=== PATIENT | female | born 1940 | race Caucasian/White ===

== ENCOUNTER → 2017-03-16 | Outpatient (CLI) | payer OTHER | LOC: FIMAGING 13:17 | PROVIDERS: ATTEND Family Medicine | DX: Z13.820 Encounter for screening for osteoporosis (principal); M85.80 Other specified disorders of bone density and structure, unspecified site; Z78.0 Asymptomatic menopausal state; Z96.643 Presence of artificial hip joint, bilateral ==

== ENCOUNTER → 2017-06-19 | Outpatient (CLI) | payer OTHER | LOC: FIMAGING 18:24 | PROVIDERS: ATTEND Physical Medicine & Rehabilitation | DX: M25.551 Pain in right hip (principal); Z96.643 Presence of artificial hip joint, bilateral ==

== ENCOUNTER 2018-08-18 15:51 | Emergency (ER) | payer OTHER ==
[2018-08-18] MEDS ORDERED: NS 500 ML IV ONE (15:55)
[2018-08-18 16:18] LABS: PLATELET COUNT 281 10^3/uL (150-400)
--- NOTE | 2018-08-18 17:28 | EDPHY ---
H & P Time Seen by Provider: 08/18/18 15:55 HPI/ROS: HPI Fainting. 77-year-old female by private vehicle with her daughter. This patient was riding in the passenger seat of her daughter's car with her daughter. She told her daughter that she was having some discomfort in her diaphragm and was feeling nauseous. She then became diaphoretic. The daughter. The car and while helping the patient get out of the passenger seat the patient briefly lost consciousness and slid down to the floor of the vehicle. Her daughter estimates she was unconscious for less than a minute. Other than the diaphragm discomfort which she describes as a tightness substernal anterior across her upper abdomen, she denied any chest pain. No palpitations. No headache. No shortness of breath. Denies any loss of sensation or weakness in her extremities. He is feeling better now. ROS: Constitutional: No fever, no chills. No weakness. Eyes: No discharge. No changes in vision. ENT: No sore throat. No nasal congestion or rhinorrhea. Respiratory: No cough. No shortness of breath. Cardiac: No chest pain, no palpitations. Gastrointestinal: No abdominal pain, no vomiting, no diarrhea. Genitourinary: No hematuria. No dysuria or increased frequency with urination. Musculoskeletal: No back pain. No neck pain. No myalgias or arthralgias. Skin: No rashes. Neurological: No headache. No focal weakness or altered sensation. Past medical history: Right total hip replacement, cervical fusion, chronic pain, lumbar laminectomy. Social history: Nonsmoker. Here with her daughter. No alcohol. Physical Exam: General Appearance: Alert, no distress. This patient is responding to questions appropriately and in full sentences. This patient appears well- hydrated and well-nourished. Head: Normocephalic atraumatic. Eyes: Pupils equal and round no pallor or injection. No lid edema, erythema or injection. ENT, Mouth: Mucous membranes are moist. The pharyngeal tissues are unremarkable. No edema or swelling. No asymmetry suggestive of abscess. No erythema or exudates. No tongue lacerations or abrasions. Respiratory: There are no retractions, lungs are clear to auscultation with good air movement bilaterally. Cardiovascular: Regular rate and rhythm. Faint systolic murmur. Gastrointestinal: Abdomen is soft and nontender, no masses, bowel sounds normal. No focal tenderness at McBurney's point. No Lowe sign. Neurological: Motor sensory function is grossly intact. Cranial nerves are normal. Cerebellar function is normal. Skin: Warm and dry, no rashes. Musculoskeletal: Neck is supple and nontender. Extremities are symmetrical. All joints range without pain or impingement. Psychiatric: No agitation. No depression. Database: EKG: EKG time is 4:00 p.m.; EKG shows a narrow complex normal sinus rhythm with a ventricular rate of 59. The UT, QRS, QT intervals are within normal limits. T- wave inversions noted in V1 through V3. No evidence of right heart strain. No evidence of WPW, Brugada syndrome, hypertrophic cardiomyopathy. Interpreted by me. Imaging: Procedures: Emergency department course: Triage vital signs reviewed and are within normal limits. Her blood pressures have most recently been in the 90s over 50s. IV was placed. She was placed on a optical goods drill operator. She was started on IV normal saline with 500 cc to be given over the next hour. EKG obtained and reviewed by myself. 5:25 p.m., the patient was re-evaluated, blood pressure currently 96/58. ear mold laboratory technician shows a narrow complex sinus rhythm with ventricular rate of 75. Results of her diagnostic workup discussed with her and her daughter. The patient currently has no complaints. I discussed admission. I explained my concerns regarding her EKG as well as the tightness she felt in her lower chest and anterior upper abdomen. She tells me that at this time she does not want to be admitted. In my professional opinion, she understands the risks of declining admission. She did agree to allow was to road test her in the emergency department and I will follow up with her regarding her disposition. 5:45 p.m., the patient was re-evaluated, she was up and ambulatory around the emergency department without issue. I again discussed admission with her. Ida, case management was in the room with me. I discussed my concerns and reasoning for admitting her for observation overnight. In my professional opinion she understands this reasoning. She declines admission. The patient competently engages in shared decision making. They demonstrate capacitance to make decisions. I discussed follow-up with Cardiology with her and her daughter. Return to emergency department precautions were thoroughly reviewed. All of their questions were answered. The patient was discharged in good condition with her daughter. Differential Diagnosis: The differential diagnosis on this patient includes but is not limited to vasovagal syncope, dehydration, arrhythmia, acute coronary syndrome. This represents a partial list of diagnoses considered. These considerations are based on history, physical exam, past history, reassessment and diagnostic testing. Smoking Status: Former smoker Constitutional: Initial Vital Signs Temperature (C) 36.5 C 08/18/18 16:00 Heart Rate 60 08/18/18 16:00 Respiratory Rate 16 08/18/18 16:00 Blood Pressure 105/63 08/18/18 16:00 O2 Sat (%) 97 08/18/18 16:00 O2 Delivery Mode Room Air Allergies/Adverse Reactions: codeine [Codeine] Allergy (Intermediate, Verified 07/15/12 12:08) Vomiting oxycodone HCl [From Percocet] Allergy (Intermediate, Verified 07/15/12 12:08) Vomiting prochlorperazine edisylate [From Compazine] Allergy (Intermediate, Verified 01/18 12:08) Other-Enter Comments prochlorperazine maleate [From Compazine] Allergy (Intermediate, Verified 12:08) Other-Enter Comments fentanyl Allergy (Verified 08/18/18 16:04) Home Medications: Medication Instructions Recorded Gabapentin 08/18/18 Hydrocodone-Acetamin 5-325 mg 08/18/18 Lorazepam 08/18/18 Medical Decision Making - Data Points Laboratory Results: Laboratory Results 08/18/18 16:11 08/18/18 16:11 08/18/18 08/18/18 08/18/18 16:11 16:11 16:06 WBC 6.01 10^3/uL 10^3/uL (3.80-9.50) RBC 4.58 10^6/uL 10^6/uL (4.18-5.33) Hgb 13.7 g/dL g/dL (12.6-16.3) Hct 42.6 % % (38.0-47.0) MCV 93.0 fL fL (81.5-99.8) MCH 29.9 pg pg (27.9-34.1) MCHC 32.2 g/dL L g/dL (32.4-36.7) RDW 12.3 % % (11.5-15.2) Plt Count 281 10^3/uL 10^3/uL (150-400) MPV 9.5 fL fL (8.7-11.7) Neut % (Auto) 51.1 % % (39.3-74.2) Lymph % (Auto) 39.3 % % (15.0-45.0) Lane % (Auto) 8.2 % % (4.5-13.0) Eos % (Auto) 0.7 % % (0.6-7.6) Baso % (Auto) 0.5 % % (0.3-1.7) Nucleat RBC Rel Count 0.0 % % (0.0-0.2) Absolute Neuts (auto) 3.08 10^3/uL 10^3/uL (1.70-6.50) Absolute Lymphs (auto) 2.36 10^3/uL 10^3/uL (1.00-3.00) Absolute Monos (auto) 0.49 10^3/uL 10^3/uL (0.30-0.80) Absolute Eos (auto) 0.04 10^3/uL 10^3/uL (0.03-0.40) Absolute Basos (auto) 0.03 10^3/uL 10^3/uL (0.02-0.10) Absolute Nucleated RBC 0.00 10^3/uL 10^3/uL (0-0.01) Immature Gran % 0.2 % % (0.0-1.1) Immature Gran # 0.01 10^3/uL 10^3/uL (0.00-0.10) Sodium 136 mEq/L mEq/L (135-145) Potassium 4.3 mEq/L mEq/L (3.5-5.2) Chloride 102 mEq/L mEq/L (97-110) Carbon Dioxide 30 mEq/l mEq/l (22-31) Anion Gap 4 mEq/L L mEq/L (6-14) BUN 16 mg/dL mg/dL (7-23) Creatinine 0.8 mg/dL mg/dL (0.6-1.0) Estimated GFR > 60 Glucose 79 mg/dL mg/dL (70-100) Calcium 9.1 mg/dL mg/dL (8.5-10.4) POC Troponin I 0.00 ng/mL ng/mL (0.00-0.08) Medications Given: Discontinued Medications Sodium Chloride (Ns) 500 mls @ 1,000 mls/hr IV EDNOW ONE PRN Reason: Protocol Stop: 08/18/18 16:24 Last Admin: 08/18/18 16:06 Dose: 500 mls Point of Care Test Results: Chemistry 08/18/18 16:06 POC Troponin I 0.00 ng/mL ng/mL (0.00-0.08) Departure - Departure Disposition: Home, Routine, Self-Care Clinical Impression: Syncope Condition: Good Instructions: Syncope (ED) Additional Instructions: Read and follow provided instructions. Follow-up with Cardiology, early this week, as discussed. I have sent notification to them and they should be calling your home on Sunday. Explain this is an emergency department follow-up for an abnormal EKG and your fainting episode. Return to the emergency department for chest pain or upper abdominal pain, heart palpitations, lightheadedness or fainting or other serious concerns. Referrals: [facility] [Provider Group] - As per Instructions
[2018-08-18 18:00] VITALS: BP 117/74
== END 2018-08-18 18:00 | disposition home or self-care (01) ==
LOC: EDUNIT#
DX: R55 Syncope and collapse (principal); E86.9 Volume depletion, unspecified
CPT/HCPCS: 84484-ER

== ENCOUNTER 2018-12-05 02:18 | Emergency (ER) | payer OTHER | END 2018-12-05 04:28 | disposition home or self-care (01) ==